=== PATIENT | male | born 1990 | race Caucasian/White ===

== ENCOUNTER 2021-03-18 20:48 | Emergency (ER) | payer SELFPAY ==
[~2021-03-18] VITALS: Ht 188 cm; Wt 109.1 kg
[2021-03-18 21:09] VITALS: BP 129/61
== END 2021-03-19 02:30 | disposition left against medical advice (07) ==
LOC: ER 20:52
DX: R10.9 Unspecified abdominal pain (principal); L02.31 Cutaneous abscess of buttock; Z53.21 Procedure and treatment not carried out due to patient leaving prior to being seen by health care provider